=== PATIENT | female | born 1990 | race Caucasian/White ===

== ENCOUNTER 2017-07-04 19:49 | Emergency (ER) | payer BC ==
[~2017-07-04] VITALS: Ht 167.6 cm; Wt 65.9 kg
[2017-07-04 19:51] VITALS: TEMP 98.6
[2017-07-04] MEDS ORDERED: SYNTHROID0.05 MG/TA PO (19:55)
[2017-07-04] MEDS ORDERED: FETZIMA80 PO (19:56)
[2017-07-04 20:49] VITALS: BP 146/90; PULSE 91
== END 2017-07-04 20:53 | disposition home or self-care (01) ==
LOC: COL.ER 19:49
DX: S89.92XA Unspecified injury of left lower leg, initial encounter (principal); T81.33XA Disruption of traumatic injury wound repair, initial encounter; W01.0XXA Fall on same level from slipping, tripping and stumbling without subsequent striking against object, initial encounter; Y92.480 Sidewalk as the place of occurrence of the external cause